=== PATIENT | female | born 1980 | race Caucasian/White ===

== ENCOUNTER 2016-06-30 10:42 | Emergency (ER) | payer OTHER ==
[2016-06-30 11:30] VITALS: BP 158/107
--- NOTE | 2016-06-30 11:49 | ED Physician Chart ---
Chief Complaint/HPI - Patient Information Date Seen:: 06/30/16 Time Seen:: 11:44 Chief Complaint:: htn History of Present Illness:: pt is a employee here. feels pressure in back of head and nausea this am. thinks bp is high. 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 pt never had htn in past..has recently lost 20 lbs w diet/exercise and no medicines or stimulants used. denies reisk of gravid. no recent illness. no MCCANN. no rash. no fever. no neck still. no weak/numb in extremities. Allergies:: Allergies Allergy/AdvReac Type Severity Reaction Status Date / Time No Known Allergies Allergy Verified 06/30/16 11:30 Vitals:: Vital Signs - 8 hr 06/30/16 06/30/16 11:30 11:31 Temp 98.4 F HR 72 RR 15 BP 158/107 158/107 O2 Sat % 98 Historian:: Patient Review of Systems - Review of Systems General/Constitutional: No fever, No chills, No weight loss, No weakness, No diaphoresis, No edema, No loss of appetite Skin: No skin lesions, No rash, No bruising Head: No headache (pressure in back of head), No light-headedness Eyes: No loss of vision, No pain, No diplopia ENT: No earache, No nasal drainage, No sore throat, No tinnitus Neck: No neck pain, No swelling, No thyromegaly, No stiffness, No mass noted Cardio Vascular: No chest pain, No palpitations, No PND, No orthopnea, No edema Pulmonary: No SOB, No cough, No sputum, No wheezing GI: Nausea, No vomiting, No diarrhea, No pain, No melena, No hematochezia, No constipation, No hematemesis G/U: No dysuria, No frequency, No hematuria Musculoskeletal: No bone or joint pain, No back pain, No muscle pain Endocrine: No polyuria, No polydipsia Psychiatric: No prior psych history, No depression, No anxiety, No suicidal ideation Hematopoietic: No bruising, No lymphadenopathy Allergic/Immuno: No urticaria, No angioedema Neurological: No syncope, No focal symptoms, No weakness, No paresthesia, No headache, No seizure, No dizziness, No confusion, No vertigo Past Medical History - Past Medical History Past Medical History: No significant medical hx, HTN Social History: Non Smoker Medication: Reviewed Family Medical History - Family Member Mother Hx Family Cancer: Yes Other Medical History: uterine Physical Exam - Physical Examination General/Constitutional: Awake, Well-developed, well-nourished, Alert, No distress, GCS 15, Non-toxic appearing, Ambulatory Other Gen/Cons comments:: alert/talkative/nad. no sinus percussion tndrness. no nuchal rigidity. nontoxic. no neuro defecit Head: Atraumatic Eyes: Lids, conjuctiva normal, PERRL, EOMI Skin: Nl inspection, No rash, No skin lesions, No ecchymosis, Well hydrated, No lymphadenopathy ENMT: External ears, nose nl, Nasal exam nl, Lips, teeth, gums nl Neck: Nontender, Full ROM w/o pain, No JVD, No nuchal rigidity, No bruit, No mass, No stridor Respiratory: Nl effort/Exclusion, Clear to Auscultation, No Wheeze/Rhonchi/Rales Cardio Vascular: RRR, No murmur, gallop, rubs, NL S1 S2 GI: No tenderness/rebounding/guarding, No organomegaly, No hernia, Normal BS's, Nondistended, No mass/bruits, No McBurney tenderness : No CVA tenderness Extremities: No tenderness or effusion, Full ROM, normal strength in all extremities, No edema, Normal digits & nails Neuro/Psych: Alert/oriented, DTR's symmetric, Normal sensory exam, Normal motor strength, Judgement/insight normal, Mood normal, Normal gait, No focal deficits Misc: normal gait, Normal back, No paraspinal tenderness Labs/Radiology/EKG Results - Lab Results Results: Laboratory Tests 06/30/16 06/30/16 06/30/16 11:50 11:50 11:50 WBC 6.9 RBC 4.55 Hgb 13.0 Hct 38.4 MCV 84.5 MCH 28.6 MCHC Differential 33.8 RDW 12.7 Plt Count 269 MPV 7.6 Neutrophils % 64.6 Lymphocytes % 28.8 Monocytes % 5.3 Eosinophils % 0.7 Basophils % 0.6 Sodium 135 L Potassium 4.1 Chloride 105 Carbon Dioxide 25.5 Anion Gap 8.6 BUN 18 Creatinine 0.7 Est GFR ( Amer) > 60.0 Est GFR (Non-Af Amer) > 60.0 BUN/Creatinine Ratio 25.7 Glucose 113 H Calcium 9.2 Total Bilirubin 0.2 L AST 24 ALT 23 Alkaline Phosphatase 58 Creatine Kinase 415 H CK-MB (CK-2) 4.6 Troponin I < 0.01 L Total Protein 6.9 Albumin 4.2 Globulin 2.7 Albumin/Globulin Ratio 1.6 Urine Test 06/30/16 12:31 WBC RBC Hgb Hct MCV MCH MCHC Differential RDW Plt Count MPV Neutrophils % Lymphocytes % Monocytes % Eosinophils % Basophils % Sodium Potassium Chloride Carbon Dioxide Anion Gap BUN Creatinine Est GFR ( Amer) Est GFR (Non-Af Amer) BUN/Creatinine Ratio Glucose Calcium Total Bilirubin AST ALT Alkaline Phosphatase Creatine Kinase CK-MB (CK-2) Troponin I Total Protein Albumin Globulin Albumin/Globulin Ratio Urine Test NEGATIVE - Radiology Results Results: ct head nad - EKG Interpretations EKG Time:: 11:55 Rhythm: nsr Mathews: 9 Rate: 78 Comments:: normal ecg, nrml st/t's etc.. ED Septic Shock - . Is Septic Shock (SBP<90, OR Lactate>4 mmol\L) present?: No - <6hrs of presentation: Vital Signs: Vital Signs - 8 hr 06/30/16 06/30/16 11:30 11:31 Temp 98.4 F HR 72 RR 15 BP 158/107 158/107 O2 Sat % 98 Reassessment (Disposition) - Reassessment Reassessment:: pt feels better...mccann has diminished. bp has normalized. pt is to start her reg bp med...return prn..worst MCCANN or cp or neuro change.. Reassessment Condition:: Improved - Diagnosis Diagnosis:: HTN - improved in ED - Aftercare/Follow up Instructions Aftercare/Follow-Up Instructions:: Counseled pt regarding lab results/diagnosis & need follow up - Patient Disposition Discharge/Transfer:: Home Condition at Disposition:: Improved ED Discharge Plan - Patient Disposition Accepting Physician: Iraida Dennis [Other] - 1-3 Days
[2016-06-30 11:59] LABS: % BASOPHILS 0.6 % (0.0-2.0); % EOSINOPHILS 0.7 % (0.0-5.0); % LYMPHOCYTES 28.8 % (20.0-50.0); % MONOCYTES 5.3 % (2.0-10.0); % NEUTROPHILS 64.6 % (40.0-80.0); HEMATOCRIT 38.4 % (35.0-45.0); MEAN CELL VOLUME 84.5 fl (81-100); MEAN CORPUSCULAR HEMOGLOBIN 28.6 pg (27.0-31.0); MEAN CORPUSCULAR HGB CONC 33.8 pg (28.0-36.0); MEAN PLATELET VOLUME 7.6 fl; NEUTROPHILE ABSOLUTE 4.5 Th/cmm (1.8-8.0); PLATELET COUNT 269 Th/cmm (150-400); RED BLOOD COUNT 4.55 Mil/cmm (3.80-5.10); RED CELL DISTRIBUTION WIDTH 12.7 % (11.5-20.0); WHITE BLOOD COUNT 6.9 Th/cmm (4.8-10.8)
[2016-06-30 12:14] LABS: ALB/GLOB RATIO 1.6 (1.0-1.8); ALKALINE PHOSPHATASE 58 U/L (34-104); ANION GAP 8.6 (7.0-16.0); BILIRUBIN,TOTAL 0.2 mg/dL (0.3-1.0); BUN - UREA NITROGEN 18 mg/dL (7-25); BUN/CREATININE RATIO 25.7; CALCIUM SERUM 9.2 mg/dL (8.6-10.3); CARBON DIOXIDE 25.5 mEq/L (21.0-31.0); CHLORIDE 105 mEq/L (98-107); CREATININE - SERUM 0.7 mg/dL (0.6-1.2); GLUCOSE 113 mg/dL (70-105); POTASSIUM SERUM 4.1 mEq/L (3.5-5.1); SGOT 24 U/L (13-39); SGPT/ALT 23 U/L (7-52); SODIUM SERUM 135 mEq/L (136-145)
[2016-06-30 12:35] LABS: CREATINE KINASE MB 4.6 ng/mL (0.6-6.3)
--- NOTE | 2016-06-30 14:14 | Diagnostic Imaging Report ---
Head CT without intravenous contrast Indication: Headache nausea and hypertension Comparison: None Technique: Axial images were obtained from the vertex to the skull base without IV contrast. Coronal reconstructions were made. Total DLP: 567, CTDI33.4 FINDINGS: Images of the brain obtained without contrast demonstrate no acute hemorrhage. No mass lesions identified. The ventricles and basal cisterns are patent. The hall-white matter differentiation is preserved. There is no mass effect or midline shift. Involutional changes are seen slightly prominent for patient's age. No skull fractures identified. No soft tissue swelling. The paranasal sinuses are clear. IMPRESSION: No acute intracranial abnormality. Involutional changes slightly prominent for patient's age.
== END 2016-06-30 14:50 | disposition home or self-care (01) ==
LOC: EEVIPCON 10:42 → ER 10:42
DX: I10 Essential (primary) hypertension (principal)
CPT/HCPCS: 99285; 93005; 70450; 84484; 36415; 85025; 82550; 82553; 81025; 80053; Q0162; Z7610